=== PATIENT | female | born 1980 | race Two or more races ===

== ENCOUNTER 2017-02-19 09:20 | Emergency (ER) | payer MEDICAID, OTHER ==
[~2017-02-19] VITALS: Ht 152.4 cm; Wt 83.9 kg
[2017-02-19] MEDS ORDERED: METOPROLOL TARTRATE 50 MG TAB PO ONE (09:45)
[2017-02-19] MEDS ORDERED: ASPirin 81 mg TAB PO ONE (09:45)
[2017-02-19 11:56] LABS: Basophils # (auto) 0.1 uL; Basophils % (auto) 0.8 % (0.0-2.0); Eosinophils # (auto) 0.3 uL; Hematocrit 39.3 % (36.0-46.0); Hemoglobin 13.6 g/dL (12.2-16.2); Lymphocytes # (auto) 1.3 uL; Lymphocytes % (auto) 12.8 % (10.0-50.0); Mean Corpuscular Hemoglobin 27.1 pg (28.0-32.0); Mean Corpuscular Hgb Conc. 34.7 g/dL (32.0-36.0); Mean Corpuscular Volume 78.3 fL (80.0-100.0); Mean Platelet Volume 7.4 fL (6.9-10.8); Monocytes # (auto) 0.5 uL; Monocytes % (auto) 5.5 % (0.0-12.0); Neutrophils # (auto) 7.7 uL; Neutrophils % (auto) 77.9 % (37.0-80.0); Nucleated Red Blood Cells % 0.1 %; Platelet Count (auto) 290 10^3/uL (140-450); Red Cell Distribution Width 13.6 % (11.8-14.3); White Blood Cell 9.9 10^3/uL (4.4-10.8)
[2017-02-19 12:00] VITALS: BP 129/75
[2017-02-19 12:21] LABS: Alkaline Phosphatase 61 U/L (45-117); Anion Gap 10 (5-15); Aspartate Aminotransferase 23 U/L (15-37); BUN/Creatinine Ratio 15.4; Bilirubin, Total 0.4 mg/dL (0.2-1.0); Blood Urea Nitrogen 8 mg/dL (7-18); Calcium 8.6 mg/dL (8.5-10.1); Carbon Dioxide 24 mmol/L (21-32); Chloride 104 mmol/L (98-107); GFR African American 173 mL/min; GFR Non-African American 143 mL/min; Glucose 155 mg/dL (74-106); Sodium 138 mmol/L (136-145); Total Protein 8.2 g/dL (6.4-8.2)
== END 2017-02-19 13:17 | disposition home or self-care (01) ==
LOC: ER 09:20 → EDBD 09:20 → ER 13:17
DX: R00.2 Palpitations (principal); R07.89 Other chest pain; I10 Essential (primary) hypertension; R42 Dizziness and giddiness; Z96.89 Presence of other specified functional implants
CPT/HCPCS: 36415; 71010; 80053; 84443; 84484; 85025; 93005

== ENCOUNTER 2018-04-21 07:53 | Emergency (ER) | payer BC, MEDICAID ==
[~2018-04-21] VITALS: Ht 152.4 cm; Wt 84.4 kg
[~2018-04-21 07:53] MED LIST: ASPI325T4 PO; METO-5 PO
[2018-04-21 08:26] LABS: Eosinophils # (auto) 0.4 uL; Lymphocytes # (auto) 0.9 uL; Monocytes # (auto) 0.5 uL; Neutrophils # (auto) 4.8 uL; Red Cell Distribution Width 13.3 % (11.8-14.3)
[2018-04-21 08:29] LABS: Basophils # (auto) 0 uL; Basophils % (auto) 0.6 % (0.0-2.0); Eosinophils % (auto) 5.3 % (0.0-7.0); Hematocrit 38.2 % (36.0-46.0); Lymphocytes % (auto) 13.2 % (10.0-50.0); Mean Corpuscular Hemoglobin 26.5 pg (28.0-32.0); Monocytes % (auto) 7.7 % (0.0-12.0); Neutrophils % (auto) 73.2 % (37.0-80.0); Nucleated Red Blood Cells % 0.2 %; Platelet Count (auto) 210 10^3/uL (140-450); White Blood Cell 6.6 10^3/uL (4.4-10.8)
[2018-04-21 08:38] LABS: Alanine Aminotransferase 31 U/L (13-56); Albumin 3.6 g/dL (3.4-5.0); Anion Gap 5 (5-15); Aspartate Aminotransferase 30 U/L (15-37); Blood Urea Nitrogen 13 mg/dL (7-18); Carbon Dioxide 25 mmol/L (21-32); Chloride 108 mmol/L (98-107); Glucose 222 mg/dL (74-106); Magnesium 1.9 mg/dL (1.6-2.6); Potassium 3.5 mmol/L (3.5-5.1); Sodium 138 mmol/L (136-145)
[2018-04-21 08:39] LABS: INR 0.99 (0.9-1.15); Partial Thromboplastin Time 28.1 sec (23.78-33.04); Prothrombin Time 10.6 sec (9.27-12.13)
[2018-04-21 08:43] LABS: Alkaline Phosphatase 60 U/L (45-117); BUN/Creatinine Ratio 22.4; Bilirubin, Total 0.5 mg/dL (0.2-1.0); GFR African American > 60 mL/min; GFR Non-African American > 60 mL/min; Total Protein 7.2 g/dL (6.4-8.2)
[2018-04-21] MEDS ORDERED: LORazepam 0.5 MG TAB PO ONE (08:45)
[2018-04-21 09:04] LABS: Urine Bacteria NONE SEEN /hpf (None Seen); Urine Blood 3+ /uL (Negative); Urine Hyaline Cast FEW /lpf (0 - 2); Urine Specific Gravity 1.021 (1.001-1.035); Urine WBC 43 /hpf (0 - 5)
[2018-04-21 09:11] LABS: Alcohol, Urine < 3.0 mg/dL (0-5); Amphetamine Screen, Urine NEGATIVE (NEGATIVE); Barbiturate Scree,Urine NEGATIVE (NEGATIVE); Benzodiazephine Screen, Urine NEGATIVE (NEGATIVE); Cannabinoid Screen, Urine NEGATIVE (NEGATIVE); Cocaine Screen, Urine NEGATIVE (NEGATIVE); Opiate Scree,Urine NEGATIVE (NEGATIVE); Phencyclidine Screen, Urine NEGATIVE (NEGATIVE)
[2018-04-21] MEDS ORDERED: cefTRIAXone 1GM/50ML D5W 50 ML IV ONE (09:30)
[2018-04-21 10:31] VITALS: BP 132/83
== END 2018-04-21 12:01 | disposition home or self-care (01) ==
LOC: ER 07:53 → EDBD 07:53 → ER 11:58
DX: R00.2 Palpitations (principal); I10 Essential (primary) hypertension; Z95.0 Presence of cardiac pacemaker
CPT/HCPCS: 36415; 71045; 80053; 80307; 81001; 83735; 84484; 85025; 85610; 85730; 87040; 93005; 94761; 96365; 99284; J0696

== ENCOUNTER 2019-06-14 04:28 | Emergency (ER) | payer BC ==
[~2019-06-14] VITALS: Ht 152.4 cm; Wt 81.6 kg
[2019-06-14 05:45] LABS: Basophils # (auto) 0.1 10 ^3/uL (0-0.2); Basophils % (auto) 0.9 % (0.0-2.0); Eosinophils # (auto) 0.4 10 ^3/uL (0-0.8); Eosinophils % (auto) 3.7 % (0.0-7.0); Hematocrit 38.6 % (36.0-46.0); Hemoglobin 13.5 g/dL (12.2-16.2); Lymphocytes # (auto) 1.5 10 ^3/uL (0.4-5.4); Lymphocytes % (auto) 13.8 % (10.0-50.0); Monocytes # (auto) 0.6 10 ^3/uL (0-1.3); Monocytes % (auto) 6.1 % (0.0-12.0); Neutrophils % (auto) 75.5 % (37.0-80.0); Nucleated Red Blood Cells % 0.3 %; Platelet Count (auto) 293 10^3/uL (140-450); Red Blood Cells 5.02 10^6/uL (4.0-5.20); Red Cell Distribution Width 13.7 % (11.8-14.3); White Blood Cell 10.6 10^3/uL (4.4-10.8)
[2019-06-14 05:57] LABS: Chloride 105 mmol/L (98-107); Potassium 3.5 mmol/L (3.5-5.1); Sodium 137 mmol/L (136-145)
[2019-06-14 06:00] LABS: INR 1.02 (0.9-1.15); Partial Thromboplastin Time 29.3 sec (23.64-32.05)
[2019-06-14 06:12] LABS: Alanine Aminotransferase 26 U/L (13-56); Alkaline Phosphatase 57 U/L (45-117); Anion Gap 8 (5-15); Aspartate Aminotransferase 21 U/L (15-37); BUN/Creatinine Ratio 23.1; Bilirubin, Total 0.4 mg/dL (0.2-1.0); Blood Urea Nitrogen 18 mg/dL (7-18); Calcium 8.8 mg/dL (8.5-10.1); Carbon Dioxide 24 mmol/L (21-32); GFR African American 107 mL/min; GFR Non-African American 88 mL/min; Glucose 149 mg/dL (74-106); Total Protein 8.1 g/dL (6.4-8.2)
[2019-06-14 10:00] VITALS: BP 111/54
== END 2019-06-14 10:54 | disposition home or self-care (01) ==
LOC: ER 04:28
DX: R00.2 Palpitations (principal); F41.9 Anxiety disorder, unspecified; E11.65 Type 2 diabetes mellitus with hyperglycemia; I10 Essential (primary) hypertension; I25.2 Old myocardial infarction; Z95.0 Presence of cardiac pacemaker
CPT/HCPCS: 36415; 71045; 80053; 83735; 83880; 84443; 84484; 85025; 85610; 85730; 93005

== ENCOUNTER 2020-01-26 16:13 | Inpatient (IN) | payer BC ==
[~2020-01-26] VITALS: Ht 152.4 cm; Wt 72.0 kg
[2020-01-26] MEDS ORDERED: SODIUM CHLORIDE 0.9% 1,000 ML IV ONE (16:30)
[2020-01-26 18:28] LABS: Basophils # (auto) 0.1 10 ^3/uL (0-0.2); Eosinophils # (auto) 0.4 10 ^3/uL (0-0.8); Hemoglobin 12.5 g/dL (12.2-16.2); Lymphocytes # (auto) 1.8 10 ^3/uL (0.4-5.4)
[2020-01-26 18:32] LABS: Eosinophils % (auto) 3.8 % (0.0-7.0); Hematocrit 36.9 % (36.0-46.0); Lymphocytes % (auto) 17.5 % (10.0-50.0); Mean Corpuscular Hemoglobin 24.3 pg (28.0-32.0); Mean Corpuscular Hgb Conc. 33.9 g/dL (32.0-36.0); Mean Corpuscular Volume 71.5 fL (80.0-100.0); Monocytes # (auto) 0.6 10 ^3/uL (0-1.3); Monocytes % (auto) 5.7 % (0.0-12.0); Neutrophils # (auto) 7.5 10 ^3/uL (1.6-8.6); Nucleated Red Blood Cells % 0.2 %; Platelet Count (auto) 282 10^3/uL (140-450); Red Blood Cells 5.16 10^6/uL (4.0-5.20); White Blood Cell 10.5 10^3/uL (4.4-10.8)
[2020-01-26 18:42] LABS: INR 0.99 (0.9-1.15); Partial Thromboplastin Time 26.9 sec (23.0-31.2)
[2020-01-26 18:44] LABS: Albumin 4.3 g/dL (3.4-5.0); Anion Gap 8 (5-15); Blood Urea Nitrogen 20 mg/dL (7-18); Calcium 9.3 mg/dL (8.5-10.1); Carbon Dioxide 27 mmol/L (21-32); Chloride 101 mmol/L (98-107); Glucose 204 mg/dL (74-106); Sodium 136 mmol/L (136-145)
[2020-01-26 18:48] LABS: Alanine Aminotransferase 17 U/L (13-56); Alkaline Phosphatase 59 U/L (45-117); Aspartate Aminotransferase 13 U/L (15-37); BUN/Creatinine Ratio 26.7; Bilirubin, Total 0.4 mg/dL (0.2-1.0); GFR African American 111 mL/min; GFR Non-African American 92 mL/min; Total Protein 8.2 g/dL (6.4-8.2)
[2020-01-26 18:59] LABS: Potassium 2.9 mmol/L (3.5-5.1)
[2020-01-26] MEDS ORDERED: POTASSIUM EFFERVESENT TAB 25 MEQ PO ONE (19:45)
[2020-01-26] MEDS ORDERED: MORPHINE SULF INJ 2 MG/ML SYRINGE 1ML IV PRN (20:15)
[2020-01-26] MEDS ORDERED: NITROGLYCERIN 0.4 MG SL TAB SL PRN (20:15)
[2020-01-26] MEDS ORDERED: HYDROcodone-ACET 5/325MG TAB PO PRN (20:30)
[2020-01-26] MEDS ORDERED: ONDANSETRON HCL 4 MG/2 ML VIAL IV PRN (20:30)
[2020-01-26] MEDS ORDERED: TEMAZEPAM 15 MG CAP PO PRN (20:30)
[2020-01-26] MEDS ORDERED: ACETAMINOPHEN 325 MG TAB PO PRN (20:30)
[2020-01-26] MEDS ORDERED: MORPHINE SULFATE 4 MG/ML SYR/VIAL IV PRN (20:30)
[2020-01-26] MEDS ORDERED: DOCUSATE SOD 100 MG CAP PO PRN (20:30)
[2020-01-26] MEDS: POTASSIUM CHL 20MEQ/100ML 100 ML IV SCH ×2 (21:06→23:20)
[2020-01-26 22:00] VITALS: BP_SYST 110; BP_SYST 112; BP_SYST 132; BP_DIAS 73; BP_DIAS 78; BP_DIAS 81
--- NOTE | 2020-01-26 22:35 | NUR ---
Telemetry admit from [facility]ONS[facility] MANSFIELDMANJINDER admitted to Telemetry unit, SBAR not received. Patient oriented to Candy neil RN, unit, room, bed, and unit policies regarding patient care and visiting hours. Patient now on continuous telemetry monitoring, tele box #66 and telemetry reading on arrival to unit is SR in the 70S, paced. Patient weighed by bedscale and encouraged to call if they need something. All questions and concerns addressed, patient verbalized understanding. Patient in the lowest possible position, no pain noted at this time.
[2020-01-26] MEDS: FAMOTIDINE 20 MG TAB PO SCH (23:20)
[2020-01-26] MEDS ORDERED: METF-370 PO (23:38)
[2020-01-26] MEDS ORDERED: BENA10TA9 PO (23:38)
[2020-01-26] MEDS ORDERED: ATO40T PO (23:38)
[2020-01-26] MEDS ORDERED: GLYB5TAB8 PO (23:38)
[2020-01-26] MEDS ORDERED: ASPI-378 PO (23:38)
[2020-01-27] VITALS: BP 132/81
[2020-01-27 05:44] VITALS: BP 106/75
[2020-01-27 05:59] LABS: Basophils # (auto) 0 10 ^3/uL (0-0.2); Basophils % (auto) 0.3 % (0.0-2.0); Eosinophils # (auto) 0.3 10 ^3/uL (0-0.8); Eosinophils % (auto) 3.7 % (0.0-7.0); Hematocrit 35.6 % (36.0-46.0); Hemoglobin 11.5 g/dL (12.2-16.2); Lymphocytes # (auto) 1.4 10 ^3/uL (0.4-5.4); Lymphocytes % (auto) 16.3 % (10.0-50.0); Mean Corpuscular Hemoglobin 23.4 pg (28.0-32.0); Mean Corpuscular Hgb Conc. 32.4 g/dL (32.0-36.0); Mean Corpuscular Volume 72.1 fL (80.0-100.0); Monocytes # (auto) 0.6 10 ^3/uL (0-1.3); Monocytes % (auto) 6.7 % (0.0-12.0); Neutrophils # (auto) 6.1 10 ^3/uL (1.6-8.6); Platelet Count (auto) 237 10^3/uL (140-450); Red Blood Cells 4.94 10^6/uL (4.0-5.20); Red Cell Distribution Width 14.9 % (11.8-14.3); White Blood Cell 8.4 10^3/uL (4.4-10.8)
[2020-01-27 06:22] LABS: Calcium 8.2 mg/dL (8.5-10.1); Chloride 108 mmol/L (98-107); Potassium 3.4 mmol/L (3.5-5.1); Sodium 138 mmol/L (136-145)
[2020-01-27 06:29] LABS: Alanine Aminotransferase 14 U/L (13-56); Albumin 3.6 g/dL (3.4-5.0); Alkaline Phosphatase 42 U/L (45-117); Anion Gap 8 (5-15); Aspartate Aminotransferase 13 U/L (15-37); BUN/Creatinine Ratio 33.3; Bilirubin, Total 0.5 mg/dL (0.2-1.0); Blood Urea Nitrogen 13 mg/dL (7-18); Carbon Dioxide 22 mmol/L (21-32); Cholesterol 90 mg/dL (< 200); GFR African American 237 mL/min; GFR Non-African American 195 mL/min; Glucose 77 mg/dL (74-106); HDL Cholesterol 41 mg/dL (40-59); LDL Cholesterol 46 mg/dL (< 100); Total Protein 6.8 g/dL (6.4-8.2); Triglycerides 82 mg/dL (< 150)
[2020-01-27 08:00] VITALS: BP 118/74
--- NOTE | 2020-01-27 08:00 | NUR ---
Patient resting quietly in bed with no distress noted. Patient stable.
[2020-01-27 09:00] VITALS: BP 130/48
[2020-01-27] MEDS: FAMOTIDINE 20 MG TAB PO SCH ×2 (09:38→22:52)
[2020-01-27] MEDS: ENOXAPARIN SOD 40 MG/0.4 ML SYRINGE SC SCH (09:38)
--- NOTE | 2020-01-27 09:39 | NUR ---
Scheduled medications given per order. Patient resting comfortably in bed with no complaint of any pain at this time. Patient stable.
--- NOTE | 2020-01-27 10:45 | NUR ---
Patient resting comfortably in bed with no distress noted. Patient stable at this time.
[2020-01-27] MEDS ORDERED: POTASSIUM CHL 20 Meq TABLET PO ONE (12:00)
--- NOTE | 2020-01-27 12:02 | NUR ---
Ordered medication (potassium; 3.4) given. Patient resting comfortably in bed. Patient stable.
--- NOTE | 2020-01-27 12:10 | NUR ---
Called [facility] at [phone]; spoke to Tomy regarding entry level account representative to come to hospital to activate pacemaker/AICD for MRI. Per Tomy, will have local Nasreen rocha call me regarding activation. Addendum: 01/27/20 at 1227 by MARV TREJO RN RN [id number]: Also called Sydney rocha) regarding activation. Per León Grimes will complete all paperwork before she can be dispatched to hospital. Addendum: 01/27/20 at 1228 by MARV TREJO RN RN Phone # for Sydney: [phone]
[2020-01-27 13:00] VITALS: BP 109/61
--- NOTE | 2020-01-27 14:00 | NUR ---
Received call from Nasreen at [facility] . Caller stated that patient's pacemaker is not from [facility]. Will call and advise Dr. Richardson.
--- NOTE | 2020-01-27 14:15 | NUR ---
Paged Dr. Richardson to relay information received from Nasreen/[facility]. Left message.
--- NOTE | 2020-01-27 16:10 | NUR ---
Patient resting comfortably in bed with eyes closed. Patient stable.
[2020-01-27 17:00] VITALS: BP 113/69
--- NOTE | 2020-01-27 17:00 | NUR ---
Paged Dr. Richardson regarding activation of pacemaker for MRI.
--- NOTE | 2020-01-27 17:30 | NUR ---
Patient stable with Dr. Ellington at bedside. Patient states pacemaker is from [facility]. Called [facility] again [phone] and spoke to Conor. Per Conor, he will contact the local rep, Nasreen and have her call me. Pacemaker needs to be interrogated and we need to know if it is compatible for MRI. Awaiting call back from Nasreen
[2020-01-27] MEDS ORDERED: MAGNESIUM SULFATE 1GM/100ML 100 ML IV SCH (18:00)
[2020-01-27 18:58] LABS: Albumin 3.5 g/dL (3.4-5.0); Calcium 8.3 mg/dL (8.5-10.1); Potassium 4.1 mmol/L (3.5-5.1)
[2020-01-27 19:01] LABS: BUN/Creatinine Ratio 22.4; Magnesium 1.6 mg/dL (1.6-2.6)
[2020-01-27 19:04] LABS: Bilirubin, Total 0.3 mg/dL (0.2-1.0); Total Protein 7.1 g/dL (6.4-8.2)
--- NOTE | 2020-01-27 19:05 | NUR ---
Dr. Marin and I spoke to Nasreen from [facility]. Patient was found in database using maiden name, Nestor and . Nasreen will contact local rep to come to hospital and interrogate pacemaker. Per Nasreen, db is not MRI compatible.
[2020-01-27] MEDS ORDERED: METOPROLOL TARTRATE 50 MG TAB PO SCH (22:00)
[2020-01-27] MEDS: MAGNESIUM SULFATE 1GM/100ML 100 ML IV SCH (22:51)
[2020-01-27] MEDS: METOPROLOL TARTRATE 50 MG TAB PO SCH (22:53)
[2020-01-28] MEDS: MAGNESIUM SULFATE 1GM/100ML 100 ML IV SCH ×2 (00:59→02:32)
[2020-01-28 05:00] VITALS: BP 119/78
[2020-01-28 06:57] LABS: Basophils # (auto) 0.1 10 ^3/uL (0-0.2); Nucleated Red Blood Cells % 0.1 %
[2020-01-28 07:00] LABS: Basophils % (auto) 1.1 % (0.0-2.0); Eosinophils # (auto) 0.3 10 ^3/uL (0-0.8); Eosinophils % (auto) 4.4 % (0.0-7.0); Hematocrit 35.2 % (36.0-46.0); Hemoglobin 11.7 g/dL (12.2-16.2); Lymphocytes # (auto) 1.2 10 ^3/uL (0.4-5.4); Lymphocytes % (auto) 15.7 % (10.0-50.0); Mean Corpuscular Hemoglobin 23.8 pg (28.0-32.0); Mean Corpuscular Hgb Conc. 33.1 g/dL (32.0-36.0); Monocytes # (auto) 0.5 10 ^3/uL (0-1.3); Monocytes % (auto) 7.2 % (0.0-12.0); Neutrophils # (auto) 5.4 10 ^3/uL (1.6-8.6); Neutrophils % (auto) 71.6 % (37.0-80.0); Platelet Count (auto) 253 10^3/uL (140-450); Red Blood Cells 4.89 10^6/uL (4.0-5.20); Red Cell Distribution Width 15.3 % (11.8-14.3); White Blood Cell 7.5 10^3/uL (4.4-10.8)
[2020-01-28 07:17] LABS: Albumin 3.6 g/dL (3.4-5.0); Calcium 8.4 mg/dL (8.5-10.1); Magnesium 2.7 mg/dL (1.6-2.6)
[2020-01-28 07:21] LABS: Bilirubin, Total 0.3 mg/dL (0.2-1.0); Total Protein 7.2 g/dL (6.4-8.2)
--- NOTE | 2020-01-28 08:31 | NUR ---
OPENING SHIFT NOTE: PATIENT RESTING IN BED, AWAKE EATING BREAKFAST A/OX4. RESPIRATIONS EVEN AND UNLABORED. PATIENT CONCERNS ADDRESSED AND UPDATED ON PLAN OF CARE. CALL LIGHT WITHIN REACH WILL CONTINUE TO MONITOR.
[2020-01-28 08:52] VITALS: BP 128/77
[2020-01-28] MEDS ORDERED: ATORVASTATIN 20 MG TAB PO SCH (10:00)
[2020-01-28] MEDS ORDERED: ASPirin-EC 81 mg tab PO SCH (10:00)
[2020-01-28] MEDS ORDERED: BENAZEPRIL HCL 10 MG TAB PO SCH (10:00)
[2020-01-28] MEDS: FAMOTIDINE 20 MG TAB PO SCH (10:04)
[2020-01-28] MEDS: METOPROLOL TARTRATE 50 MG TAB PO SCH (10:04)
[2020-01-28] MEDS: ENOXAPARIN SOD 40 MG/0.4 ML SYRINGE SC SCH (10:04)
[2020-01-28 13:00] VITALS: BP 105/67
[2020-01-28 14:12] VITALS: BP 117/73
--- NOTE | 2020-01-28 16:16 | NUR ---
DISCHARGE: PATIENT GIVEN ALL EDUCATION MATERIALS. VERBALIZED UNDERSTANDING. PATIENT HAS APPOINTMENT WITH ROAD DESIGN ENGINEER TOMORROW. IV REMOVED, MANUAL PRESSURE APPLIED. TELE RETURNED TO CARDIO UNIT. PATIENT TAKEN TO PRIVATE AUTO WITH ALL BELONGINGS VIA WHEELCHAIR BY THIS RN.
== END 2020-01-28 16:22 | disposition home or self-care (01) | DRG 310 ==
LOC: ER 16:13 → EDBD 16:13 → TELE 16:14 → TELE-WESTW 22:20
PROVIDERS: ADMIT Nurse Practitioner; ATTEND Internal Medicine
PROC: 4B02XTZ Measurement of Cardiac Defibrillator, External Approach (ICD-10-PCS; principal; 2020-01-27)
DX: I47.1 Supraventricular tachycardia (principal); E66.9 Obesity, unspecified; Z68.31 Body mass index [BMI] 31.0-31.9, adult; E78.00 Pure hypercholesterolemia, unspecified; E87.6 Hypokalemia; I10 Essential (primary) hypertension; I45.10 Unspecified right bundle-branch block; E11.40 Type 2 diabetes mellitus with diabetic neuropathy, unspecified; I25.10 Atherosclerotic heart disease of native coronary artery without angina pectoris; I25.2 Old myocardial infarction; Z79.82 Long term (current) use of aspirin; Z79.899 Other long term (current) drug therapy; Z82.49 Family history of ischemic heart disease and other diseases of the circulatory system; Z95.2 Presence of prosthetic heart valve; Z95.810 Presence of automatic (implantable) cardiac defibrillator; Z95.5 Presence of coronary angioplasty implant and graft; Z79.84 Long term (current) use of oral hypoglycemic drugs
CPT/HCPCS: 36415; 70450; 71045; 80053; 80061; 83036; 83735; 83880; 84484; 85025; 85610; 85730; 93005; 93306; G0378; J3480

== ENCOUNTER 2020-06-01 13:58 | Emergency (ER) | payer BC ==
[~2020-06-01] VITALS: Ht 154.9 cm; Wt 73.5 kg
[~2020-06-01 13:58] MED LIST changes: +ASPI-378 PO; -ASPI325T4 PO; +ATO40T PO; +BENA10TA9 PO; -METO-5 PO
[2020-06-01 14:43] LABS: Basophils # (auto) 0.1 10 ^3/uL (0-0.2); Hemoglobin 11.7 g/dL (12.2-16.2); Lymphocytes # (auto) 1.7 10 ^3/uL (0.4-5.4); Neutrophils # (auto) 5.7 10 ^3/uL (1.6-8.6); Nucleated Red Blood Cells % 0.2 %; Red Cell Distribution Width 16.6 % (11.8-14.3)
[2020-06-01 14:44] LABS: Basophils % (auto) 0.9 % (0.0-2.0); Eosinophils # (auto) 0.5 10 ^3/uL (0-0.8); Eosinophils % (auto) 5.4 % (0.0-7.0); Hematocrit 34.6 % (36.0-46.0); Lymphocytes % (auto) 19.8 % (10.0-50.0); Mean Corpuscular Hemoglobin 24.3 pg (28.0-32.0); Mean Corpuscular Hgb Conc. 33.9 g/dL (32.0-36.0); Mean Corpuscular Volume 71.6 fL (80.0-100.0); Monocytes # (auto) 0.7 10 ^3/uL (0-1.3); Monocytes % (auto) 7.6 % (0.0-12.0); Neutrophils % (auto) 66.3 % (37.0-80.0); Platelet Count (auto) 311 10^3/uL (140-450); Red Blood Cells 4.84 10^6/uL (4.0-5.20); White Blood Cell 8.6 10^3/uL (4.4-10.8)
[2020-06-01] MEDS ORDERED: ASPirin 81 mg TAB PO ONE (14:45)
[2020-06-01 15:16] LABS: Albumin 3.6 g/dL (3.4-5.0); Anion Gap 5 (5-15); Blood Urea Nitrogen 13 mg/dL (7-18); Calcium 8.5 mg/dL (8.5-10.1); Carbon Dioxide 27 mmol/L (21-32); Chloride 106 mmol/L (98-107); Glucose 161 mg/dL (74-106); Magnesium 2.2 mg/dL (1.6-2.6); Potassium 3.9 mmol/L (3.5-5.1); Sodium 138 mmol/L (136-145)
[2020-06-01 15:18] LABS: INR 0.96 (0.9-1.15); Partial Thromboplastin Time 26.8 sec (23.0-31.2)
[2020-06-01 15:22] LABS: Alanine Aminotransferase 18 U/L (13-56); Alkaline Phosphatase 48 U/L (45-117); Aspartate Aminotransferase 17 U/L (15-37); BUN/Creatinine Ratio 21.7; Bilirubin, Total 0.3 mg/dL (0.2-1.0); GFR African American 144 mL/min; GFR Non-African American 119 mL/min; Total Protein 7.8 g/dL (6.4-8.2)
[2020-06-01 15:34] LABS: Urine Amorphous Crystal FEW /hpf (None Seen); Urine Bacteria NONE SEEN /hpf (None Seen); Urine Blood 3+ /uL (Negative); Urine Budding Yeast OCCASIONAL /hpf (None Seen); Urine Mucus FEW (None Seen); Urine Specific Gravity 1.024 (1.001-1.035); Urine WBC 39 /hpf (0 - 5)
[2020-06-01] MEDS ORDERED: METOPROLOL TARTRATE 50 MG TAB PO ONE (15:45)
[2020-06-01] MEDS ORDERED: IOPAMIDOL 76 % (ISOVUE-370) 100ML BTL IV ONE (17:20)
[2020-06-01 19:30] VITALS: BP 152/83
== END 2020-06-01 20:11 | disposition home or self-care (01) ==
LOC: EDBD 13:58 → ER 13:58
DX: R00.2 Palpitations (principal); R07.89 Other chest pain; N39.0 Urinary tract infection, site not specified; E11.9 Type 2 diabetes mellitus without complications; I10 Essential (primary) hypertension; Z79.899 Other long term (current) drug therapy
CPT/HCPCS: 36415; 71045; 71275; 80053; 81001; 83735; 84443; 84484; 84702; 85025; 85379; 85610; 85730; 93005; 99285; Q9967

== ENCOUNTER 2020-12-09 10:12 | Emergency (ER) | payer BC ==
[~2020-12-09] VITALS: Ht 154.9 cm; Wt 72.6 kg
[2020-12-09 12:00] VITALS: BP 126/78
[2020-12-09] MEDS ORDERED: cloNIDine HCL 0.1 MG TAB PO ONE (12:45)
== END 2020-12-09 13:10 | disposition home or self-care (01) ==
LOC: ER 10:12
DX: G45.9 Transient cerebral ischemic attack, unspecified (principal); R07.89 Other chest pain; I10 Essential (primary) hypertension; E11.9 Type 2 diabetes mellitus without complications; Z95.0 Presence of cardiac pacemaker; Z98.890 Other specified postprocedural states
CPT/HCPCS: 70450; 70480; 93005

== ENCOUNTER 2021-08-25 23:04 | Inpatient (IN) | payer BC ==
[~2021-08-25] VITALS: Ht 152.4 cm; Wt 76.0 kg
[~2021-08-25 23:04] MED LIST changes: +BENA10TA15 PO; -BENA10TA9 PO
[2021-08-26] VITALS (11 sets, daily range): BP systolic 110–140; BP diastolic 37–78
[2021-08-26 00:24] LABS: Basophils # (auto) 0.1 10 ^3/uL (0-0.2); Eosinophils # (auto) 0.2 10 ^3/uL (0-0.8); Monocytes # (auto) 0.8 10 ^3/uL (0-1.3); Neutrophils # (auto) 9.3 10 ^3/uL (1.6-8.6); Nucleated Red Blood Cells % 0.1 %
[2021-08-26 00:25] LABS: Basophils % (auto) 0.5 % (0.0-2.0); Eosinophils % (auto) 1.8 % (0.0-7.0); Hematocrit 21.8 % (36.0-46.0); Lymphocytes # (auto) 0.8 10 ^3/uL (0.4-5.4); Lymphocytes % (auto) 6.8 % (10.0-50.0); Mean Corpuscular Hemoglobin 15.2 pg (28.0-32.0); Mean Corpuscular Hgb Conc. 28.9 g/dL (32.0-36.0); Mean Corpuscular Volume 52.6 fL (80.0-100.0); Monocytes % (auto) 7.4 % (0.0-12.0); Neutrophils % (auto) 83.5 % (37.0-80.0); Red Blood Cells 4.15 10^6/uL (4.0-5.20); White Blood Cell 11.1 10^3/uL (4.4-10.8)
[2021-08-26 00:31] LABS: Hemoglobin 6.3 g/dL (12.2-16.2); Red Cell Distribution Width 21.3 % (11.8-14.3)
[2021-08-26 00:44] LABS: Albumin 3.3 g/dL (3.4-5.0); Calcium 8.3 mg/dL (8.5-10.1); Potassium 3.5 mmol/L (3.5-5.1)
[2021-08-26 00:46] LABS: Bilirubin, Total 0.7 mg/dL (0.2-1.0); Total Protein 7.3 g/dL (6.4-8.2)
[2021-08-26] MEDS ORDERED: ACETAMINOPHEN 325 MG TAB PO PRN (02:00)
[2021-08-26] MEDS ORDERED: DOCUSATE SOD 100 MG CAP PO PRN (02:00)
[2021-08-26] MEDS ORDERED: SODIUM CHLORIDE 0.9% 1,000 ML IV SCH (02:00)
[2021-08-26] MEDS ORDERED: ONDANSETRON HCL 4 MG/2 ML VIAL IV PRN (02:00)
[2021-08-26] MEDS ORDERED: HYDROcodone-ACET 5/325MG TAB PO PRN (02:00)
[2021-08-26] MEDS ORDERED: DEXTROSE (50%) 50ML SYRG IV PRN (02:00)
[2021-08-26] MEDS ORDERED: hydrALAZINE HCL 20 MG/ML VL IV PRN (02:15)
[2021-08-26 04:53] LABS: Urine Bacteria MANY /hpf (None Seen); Urine Blood 3+ /uL (Negative); Urine Hyaline Cast FEW /lpf (0 - 2); Urine Mucus FEW (None Seen); Urine Specific Gravity 1.024 (1.001-1.035); Urine WBC 38 /hpf (0 - 5)
[2021-08-26] MEDS ORDERED: MORPHINE SULFATE INJ 2 MG/ml SYRG IV PRN (05:45)
[2021-08-26] MEDS ORDERED: NITROGLYCERIN 0.4 MG SL TAB SL PRN (05:45)
[2021-08-26] MEDS: ACCU-CHEK COMFORT CURVE STRIP VI SCH ×4 (07:05→22:57)
[2021-08-26] MEDS: InsuLIN REG 1unit/0.01ml Soln (100units/ml) SC SCH ×4 (07:07→23:04)
[2021-08-26 08:14] LABS: BUN/Creatinine Ratio 26.7; Calcium 8.1 mg/dL (8.5-10.1); Potassium 3.4 mmol/L (3.5-5.1)
[2021-08-26 08:17] LABS: Bilirubin, Total 0.6 mg/dL (0.2-1.0); Total Protein 7.1 g/dL (6.4-8.2)
[2021-08-26] MEDS: ASPirin 81 mg TAB PO SCH (09:58)
[2021-08-26] MEDS: BENAZEPRIL HCL 10 MG TAB PO SCH ×2 (10:00→22:48)
[2021-08-26] MEDS: HEPARIN SODIUM (PORCINE) 5000 UNITS/ML 1ML VIAL SC SCH ×2 (10:01→22:57)
[2021-08-26] MEDS ORDERED: cefTRIAXone 1GM/50ML D5W 50 ML IV ONE (13:15)
[2021-08-26 17:16] LABS: Eosinophils # (auto) 0.2 10 ^3/uL (0-0.8); Mean Corpuscular Hgb Conc. 31.9 g/dL (32.0-36.0)
[2021-08-26 17:18] LABS: Basophils # (auto) 0 10 ^3/uL (0-0.2); Basophils % (auto) 0.3 % (0.0-2.0); Eosinophils % (auto) 2.7 % (0.0-7.0); Hematocrit 28.6 % (36.0-46.0); Hemoglobin 9.1 g/dL (12.2-16.2); Lymphocytes # (auto) 1.5 10 ^3/uL (0.4-5.4); Lymphocytes % (auto) 17.2 % (10.0-50.0); Mean Corpuscular Volume 59.6 fL (80.0-100.0); Monocytes # (auto) 1.1 10 ^3/uL (0-1.3); Monocytes % (auto) 12.9 % (0.0-12.0); Neutrophils # (auto) 5.6 10 ^3/uL (1.6-8.6); Neutrophils % (auto) 66.9 % (37.0-80.0); Nucleated Red Blood Cells % 0.2 %; White Blood Cell 8.4 10^3/uL (4.4-10.8)
[2021-08-26 17:33] LABS: Red Cell Distribution Width 30.4 % (11.8-14.3)
[2021-08-26] MEDS: ATORVASTATIN 20 MG TAB PO SCH (22:46)
[2021-08-26] MEDS: METOPROLOL TARTRATE 50 MG TAB PO SCH (22:47)
[2021-08-26 22:57] LABS: % Iron Saturation 7.4 % (15-50)
[2021-08-27] MEDS ORDERED: GLYB5TAB8 PO (02:18)
[2021-08-27] MEDS ORDERED: METF-370 PO (02:18)
[2021-08-27 05:40] VITALS: BP 112/59
[2021-08-27] MEDS: InsuLIN REG 1unit/0.01ml Soln (100units/ml) SC SCH ×4 (06:22→21:56)
[2021-08-27] MEDS: ACCU-CHEK COMFORT CURVE STRIP VI SCH ×4 (06:22→21:56)
[2021-08-27 06:25] LABS: Basophils # (auto) 0.1 10 ^3/uL (0-0.2); Eosinophils # (auto) 0.3 10 ^3/uL (0-0.8); Lymphocytes # (auto) 1.3 10 ^3/uL (0.4-5.4); Nucleated Red Blood Cells % 0.2 %; White Blood Cell 8.7 10^3/uL (4.4-10.8)
[2021-08-27 06:30] LABS: Basophils % (auto) 1.6 % (0.0-2.0); Eosinophils % (auto) 3.1 % (0.0-7.0); Hematocrit 28.4 % (36.0-46.0); Lymphocytes % (auto) 14.7 % (10.0-50.0); Mean Corpuscular Hemoglobin 19.2 pg (28.0-32.0); Mean Corpuscular Hgb Conc. 31.8 g/dL (32.0-36.0); Mean Corpuscular Volume 60.3 fL (80.0-100.0); Monocytes % (auto) 11.7 % (0.0-12.0); Neutrophils % (auto) 68.9 % (37.0-80.0); Red Blood Cells 4.71 10^6/uL (4.0-5.20); Red Cell Distribution Width 29.8 % (11.8-14.3)
[2021-08-27 06:48] LABS: Albumin 2.9 g/dL (3.4-5.0); Calcium 8.2 mg/dL (8.5-10.1); Potassium 3.8 mmol/L (3.5-5.1)
[2021-08-27 06:54] LABS: Bilirubin, Total 0.9 mg/dL (0.2-1.0); Total Protein 7.2 g/dL (6.4-8.2)
[2021-08-27 08:00] VITALS: BP 112/59
[2021-08-27 09:00] VITALS: BP 107/48
[2021-08-27] MEDS: cefTRIAXone 1GM/50ML D5W 50 ML IV SCH (09:32)
[2021-08-27] MEDS: METOPROLOL TARTRATE 50 MG TAB PO SCH ×2 (09:33→22:10)
[2021-08-27] MEDS: ASPirin 81 mg TAB PO SCH (09:33)
[2021-08-27] MEDS: BENAZEPRIL HCL 10 MG TAB PO SCH ×2 (09:34→22:10)
[2021-08-27] MEDS: HEPARIN SODIUM (PORCINE) 5000 UNITS/ML 1ML VIAL SC SCH ×2 (09:36→21:55)
[2021-08-27 13:00] VITALS: BP 117/54
[2021-08-27] MEDS: SODIUM FERR GLUC 62.5MG/5ML 125 MG in SODIUM CHL 0.9% 100 ML IV SCH (13:15)
[2021-08-27 17:00] VITALS: BP 125/63
[2021-08-27] MEDS: ATORVASTATIN 20 MG TAB PO SCH (22:09)
[2021-08-27 23:57] VITALS: BP 115/76
[2021-08-28 05:17] VITALS: BP 91/48
[2021-08-28] MEDS: ACCU-CHEK COMFORT CURVE STRIP VI SCH ×4 (06:05→21:19)
[2021-08-28] MEDS: InsuLIN REG 1unit/0.01ml Soln (100units/ml) SC SCH ×4 (06:05→21:18)
[2021-08-28 07:03] LABS: Eosinophils # (auto) 0.3 10 ^3/uL (0-0.8); Lymphocytes # (auto) 1.5 10 ^3/uL (0.4-5.4); Nucleated Red Blood Cells % 0.2 %
[2021-08-28 07:05] LABS: Basophils # (auto) 0.4 10 ^3/uL (0-0.2); Eosinophils % (auto) 3.6 % (0.0-7.0); Hemoglobin 9.1 g/dL (12.2-16.2); Lymphocytes % (auto) 21.3 % (10.0-50.0); Mean Corpuscular Hgb Conc. 31.4 g/dL (32.0-36.0); Mean Corpuscular Volume 60.4 fL (80.0-100.0); Monocytes # (auto) 0.8 10 ^3/uL (0-1.3); Monocytes % (auto) 11.1 % (0.0-12.0); Neutrophils # (auto) 4.3 10 ^3/uL (1.6-8.6); White Blood Cell 7.3 10^3/uL (4.4-10.8)
[2021-08-28 07:07] LABS: Red Cell Distribution Width 30.7 % (11.8-14.3)
[2021-08-28 08:20] VITALS: BP 112/59
[2021-08-28 09:00] VITALS: BP 114/57
[2021-08-28] MEDS: cefTRIAXone 1GM/50ML D5W 50 ML IV SCH (10:23)
[2021-08-28] MEDS: ASPirin 81 mg TAB PO SCH (10:23)
[2021-08-28] MEDS: METOPROLOL TARTRATE 50 MG TAB PO SCH ×2 (10:25→22:02)
[2021-08-28] MEDS: HEPARIN SODIUM (PORCINE) 5000 UNITS/ML 1ML VIAL SC SCH ×2 (10:27→21:17)
[2021-08-28] MEDS: SODIUM FERR GLUC 62.5MG/5ML 125 MG in SODIUM CHL 0.9% 100 ML IV SCH ×2 (12:00→17:19)
[2021-08-28 13:00] VITALS: BP 123/53
[2021-08-28] MEDS: BENAZEPRIL HCL 10 MG TAB PO SCH ×2 (14:13→22:02)
[2021-08-28 16:53] VITALS: BP 121/61
[2021-08-28] MEDS: metFORMIN HYDROCHLORIDE 500 MG TAB PO SCH (17:32)
[2021-08-28 22:00] VITALS: BP 145/78
[2021-08-28] MEDS: ATORVASTATIN 20 MG TAB PO SCH (22:01)
[2021-08-29 05:11] VITALS: BP 120/58
[2021-08-29] MEDS: InsuLIN REG 1unit/0.01ml Soln (100units/ml) SC SCH ×2 (06:09→11:30)
[2021-08-29] MEDS: ACCU-CHEK COMFORT CURVE STRIP VI SCH ×2 (06:09→11:34)
[2021-08-29 07:17] LABS: Basophils # (auto) 0.1 10 ^3/uL (0-0.2); Hematocrit 28.9 % (36.0-46.0); Hemoglobin 8.9 g/dL (12.2-16.2); Mean Corpuscular Hgb Conc. 30.9 g/dL (32.0-36.0); Neutrophils # (auto) 4.8 10 ^3/uL (1.6-8.6); Neutrophils % (auto) 66.3 % (37.0-80.0); White Blood Cell 7.2 10^3/uL (4.4-10.8)
[2021-08-29 07:19] LABS: Basophils % (auto) 1.4 % (0.0-2.0); Eosinophils # (auto) 0.2 10 ^3/uL (0-0.8); Eosinophils % (auto) 3.2 % (0.0-7.0); Lymphocytes # (auto) 1.3 10 ^3/uL (0.4-5.4); Lymphocytes % (auto) 17.5 % (10.0-50.0); Mean Corpuscular Hemoglobin 18.7 pg (28.0-32.0); Mean Corpuscular Volume 60.6 fL (80.0-100.0); Monocytes # (auto) 0.8 10 ^3/uL (0-1.3); Monocytes % (auto) 11.6 % (0.0-12.0); Nucleated Red Blood Cells % 0.2 %; Red Blood Cells 4.78 10^6/uL (4.0-5.20)
[2021-08-29 07:33] LABS: Red Cell Distribution Width 30.8 % (11.8-14.3)
[2021-08-29] MEDS: metFORMIN HYDROCHLORIDE 500 MG TAB PO SCH (07:41)
[2021-08-29 08:00] VITALS: BP 128/77
[2021-08-29 09:05] VITALS: BP 128/77
[2021-08-29] MEDS: cefTRIAXone 1GM/50ML D5W 50 ML IV SCH (09:28)
[2021-08-29] MEDS: ASPirin 81 mg TAB PO SCH (09:49)
[2021-08-29] MEDS: BENAZEPRIL HCL 10 MG TAB PO SCH (09:51)
[2021-08-29] MEDS: METOPROLOL TARTRATE 50 MG TAB PO SCH (09:51)
[2021-08-29] MEDS: HEPARIN SODIUM (PORCINE) 5000 UNITS/ML 1ML VIAL SC SCH (09:52)
[2021-08-29] MEDS ORDERED: MET50T PO (10:49)
[2021-08-29 12:41] VITALS: BP 123/72
[2021-08-29] MEDS: SODIUM FERR GLUC 62.5MG/5ML 125 MG in SODIUM CHL 0.9% 100 ML IV SCH (12:49)
[2021-08-29 13:38] VITALS: BP 123/72
[2021-08-29 13:46] VITALS: BP 123/72
== END 2021-08-29 15:30 | disposition home or self-care (01) | DRG 309 ==
LOC: ER 23:04 → EDBD 23:04 → TELE 08-26 05:40 → TELE-WESTW 08-26 20:22
PROVIDERS: ADMIT Nurse Practitioner Family; ATTEND Internal Medicine Pulmonary Disease
PROC: 30233N1 Transfusion of Nonautologous Red Blood Cells into Peripheral Vein, Percutaneous Approach (ICD-10-PCS; principal; 2021-08-26)
PROC: 4B02XTZ Measurement of Cardiac Defibrillator, External Approach (ICD-10-PCS; 2021-08-29)
DX: I48.91 Unspecified atrial fibrillation (principal); D62 Acute posthemorrhagic anemia; I47.1 Supraventricular tachycardia; E11.65 Type 2 diabetes mellitus with hyperglycemia; E66.01 Morbid (severe) obesity due to excess calories; R31.9 Hematuria, unspecified; E78.5 Hyperlipidemia, unspecified; N92.0 Excessive and frequent menstruation with regular cycle; Z20.822 Contact with and (suspected) exposure to COVID-19; I10 Essential (primary) hypertension; Z82.49 Family history of ischemic heart disease and other diseases of the circulatory system; Z95.810 Presence of automatic (implantable) cardiac defibrillator; Z68.32 Body mass index [BMI] 32.0-32.9, adult; Z85.72 Personal history of non-Hodgkin lymphomas
CPT/HCPCS: 36415; 71045; 80053; 81001; 82962; 83036; 83540; 83550; 83880; 84443; 84484; 84702; 85025; 86850; 86900; 86901; 86920; 93005; 93306; 96365; G0378; J0696; J1815

== ENCOUNTER 2021-11-07 06:52 | Inpatient (IN) | payer BC ==
[~2021-11-07] VITALS: Ht 152.4 cm; Wt 70.0 kg
[~2021-11-07 06:52] MED LIST changes: +GLYB5TAB8 PO; +MET50T PO; +METF-370 PO
[2021-11-07 09:15] LABS: Basophils # (auto) 0.1 10 ^3/uL (0-0.2); Eosinophils # (auto) 0.1 10 ^3/uL (0-0.8); Lymphocytes # (auto) 0.8 10 ^3/uL (0.4-5.4); Monocytes # (auto) 0.7 10 ^3/uL (0-1.3)
[2021-11-07 09:17] LABS: Basophils % (auto) 0.9 % (0.0-2.0); Eosinophils % (auto) 0.8 % (0.0-7.0); Hematocrit 22.9 % (36.0-46.0); Hemoglobin 7.4 g/dL (12.2-16.2); Lymphocytes % (auto) 8.5 % (10.0-50.0); Mean Corpuscular Hemoglobin 23.6 pg (28.0-32.0); Mean Corpuscular Hgb Conc. 32.4 g/dL (32.0-36.0); Mean Corpuscular Volume 72.9 fL (80.0-100.0); Monocytes % (auto) 6.9 % (0.0-12.0); Neutrophils # (auto) 8.1 10 ^3/uL (1.6-8.6); Neutrophils % (auto) 82.9 % (37.0-80.0); Red Blood Cells 3.15 10^6/uL (4.0-5.20); Red Cell Distribution Width 16.5 % (11.8-14.3); White Blood Cell 9.8 10^3/uL (4.4-10.8)
[2021-11-07 09:28] LABS: INR 1.04 (0.9-1.15); Partial Thromboplastin Time 26.9 sec (24.6-33.4)
[2021-11-07 09:31] LABS: Albumin 2.9 g/dL (3.4-5.0); Calcium 8.3 mg/dL (8.5-10.1); Potassium 3.3 mmol/L (3.5-5.1)
[2021-11-07 09:35] LABS: BUN/Creatinine Ratio 20.8; Bilirubin, Total 0.3 mg/dL (0.2-1.0); Total Protein 7.5 g/dL (6.4-8.2)
[2021-11-07 13:10] LABS: Urine Bacteria NONE SEEN /hpf (None Seen); Urine Blood 3+ /uL (Negative); Urine Mucus FEW (None Seen); Urine Specific Gravity 1.014 (1.001-1.035); Urine WBC 15 /hpf (0 - 5)
[2021-11-07] MEDS ORDERED: POTASSIUM CHL 20 Meq TABLET PO ONE (13:30)
[2021-11-07] MEDS ORDERED: NITROGLYCERIN 0.4 MG SL TAB SL PRN (13:30)
[2021-11-07] MEDS ORDERED: MORPHINE SULFATE INJ 2 MG/ml SYRG IV PRN (13:30)
[2021-11-07] MEDS ORDERED: DEXTROSE (50%) 50ML SYRG IV PRN (15:15)
[2021-11-07] MEDS: ACCU-CHEK COMFORT CURVE STRIP VI SCH (18:00)
[2021-11-07] MEDS: InsuLIN REG 1unit/0.01ml Soln (100units/ml) SC SCH (18:00)
[2021-11-07 21:23] VITALS: BP 128/68
[2021-11-07] MEDS: METOPROLOL TARTRATE 50 MG TAB PO SCH (21:25)
[2021-11-07] MEDS ORDERED: MEDR10TA9 PO (21:27)
[2021-11-07] MEDS ORDERED: METOPROLOL TARTRATE 50 MG TAB PO SCH (22:00)
[2021-11-07 23:56] VITALS: BP 105/64
[2021-11-08] VITALS (9 sets, daily range): BP systolic 102–122; BP diastolic 61–71
[2021-11-08] MEDS: ACCU-CHEK COMFORT CURVE STRIP VI SCH ×5 (00:05→23:44)
[2021-11-08] MEDS: InsuLIN REG 1unit/0.01ml Soln (100units/ml) SC SCH ×5 (00:24→23:47)
[2021-11-08] MEDS: METOPROLOL TARTRATE 50 MG TAB PO SCH ×3 (06:11→22:06)
[2021-11-08 07:06] LABS: Basophils # (auto) 0.1 10 ^3/uL (0-0.2); Eosinophils # (auto) 0.2 10 ^3/uL (0-0.8); Hemoglobin 8.7 g/dL (12.2-16.2); Lymphocytes # (auto) 1.4 10 ^3/uL (0.4-5.4); Mean Corpuscular Hemoglobin 23.1 pg (28.0-32.0); Mean Corpuscular Hgb Conc. 31.3 g/dL (32.0-36.0); Mean Corpuscular Volume 73.6 fL (80.0-100.0); Monocytes # (auto) 0.8 10 ^3/uL (0-1.3)
[2021-11-08 07:07] LABS: INR 1.05 (0.9-1.15); Partial Thromboplastin Time 29.6 sec (24.6-33.4)
[2021-11-08 07:09] LABS: Basophils % (auto) 1.1 % (0.0-2.0); Eosinophils % (auto) 2.7 % (0.0-7.0); Hematocrit 27.8 % (36.0-46.0); Lymphocytes % (auto) 16.2 % (10.0-50.0); Neutrophils # (auto) 6.3 10 ^3/uL (1.6-8.6); Nucleated Red Blood Cells % 0.1 %; Red Blood Cells 3.78 10^6/uL (4.0-5.20); Red Cell Distribution Width 16.9 % (11.8-14.3); White Blood Cell 8.8 10^3/uL (4.4-10.8)
[2021-11-08 07:10] LABS: BUN/Creatinine Ratio 27.5; Calcium 8.3 mg/dL (8.5-10.1); Magnesium 2.1 mg/dL (1.6-2.6); Potassium 4.2 mmol/L (3.5-5.1)
[2021-11-08] MEDS: ASPirin-EC 81 mg tab PO SCH (09:56)
[2021-11-08] MEDS: ATORVASTATIN 20 MG TAB PO SCH (09:56)
[2021-11-08] MEDS ORDERED: medroxyPROGESTERone ACETATE 5 MG TAB PO ONE (11:45)
[2021-11-08] MEDS ORDERED: cefTRIAXone 1GM/50ML D5W 50 ML IV ONE (11:45)
[2021-11-09 05:00] VITALS: BP 105/64
[2021-11-09] MEDS: ACCU-CHEK COMFORT CURVE STRIP VI SCH ×2 (06:14→11:59)
[2021-11-09] MEDS: InsuLIN REG 1unit/0.01ml Soln (100units/ml) SC SCH ×2 (06:15→11:59)
[2021-11-09 06:32] LABS: Basophils # (auto) 0.1 10 ^3/uL (0-0.2); Eosinophils # (auto) 0.2 10 ^3/uL (0-0.8); Lymphocytes # (auto) 1.2 10 ^3/uL (0.4-5.4); Neutrophils # (auto) 6.3 10 ^3/uL (1.6-8.6); Nucleated Red Blood Cells % 0.1 %
[2021-11-09 06:35] LABS: Basophils % (auto) 0.6 % (0.0-2.0); Eosinophils % (auto) 2.6 % (0.0-7.0); Hematocrit 27.8 % (36.0-46.0); Hemoglobin 9.4 g/dL (12.2-16.2); Lymphocytes % (auto) 13.7 % (10.0-50.0); Mean Corpuscular Hemoglobin 24.4 pg (28.0-32.0); Mean Corpuscular Hgb Conc. 33.7 g/dL (32.0-36.0); Mean Corpuscular Volume 72.5 fL (80.0-100.0); Monocytes # (auto) 0.8 10 ^3/uL (0-1.3); Monocytes % (auto) 9.5 % (0.0-12.0); Neutrophils % (auto) 73.6 % (37.0-80.0); Red Blood Cells 3.84 10^6/uL (4.0-5.20); Red Cell Distribution Width 16.8 % (11.8-14.3); White Blood Cell 8.6 10^3/uL (4.4-10.8)
[2021-11-09 09:00] VITALS: BP 104/69
[2021-11-09] MEDS ORDERED: cefTRIAXone 1GM/50ML D5W 50 ML IV SCH (09:00)
[2021-11-09] MEDS: ASPirin-EC 81 mg tab PO SCH (09:26)
[2021-11-09] MEDS: ATORVASTATIN 20 MG TAB PO SCH (09:26)
[2021-11-09] MEDS ORDERED: medroxyPROGESTERone ACETATE 5 MG TAB PO SCH (10:00)
[2021-11-09] MEDS ORDERED: METO25TA5 PO (10:02)
[2021-11-09] MEDS ORDERED: FERR-7 PO (10:02)
[2021-11-09 11:09] VITALS: BP 107/60
[2021-11-09 13:00] VITALS: BP 119/73
== END 2021-11-09 13:02 | disposition home or self-care (01) | DRG 281 ==
LOC: EDBD 06:52 → ER 06:52 → TELE 13:50 → TELE-WESTW 18:03
PROVIDERS: ADMIT Nurse Practitioner Family; ATTEND Family Medicine
PROC: 4B02XTZ Measurement of Cardiac Defibrillator, External Approach (ICD-10-PCS; principal; 2021-11-08)
DX: T82.118A Breakdown (mechanical) of other cardiac electronic device, initial encounter (principal); I21.A1 Myocardial infarction type 2; I47.1 Supraventricular tachycardia; I48.20 Chronic atrial fibrillation, unspecified; D64.9 Anemia, unspecified; E87.6 Hypokalemia; Z20.822 Contact with and (suspected) exposure to COVID-19; Y83.8 Other surgical procedures as the cause of abnormal reaction of the patient, or of later complication, without mention of misadventure at the time of the procedure; I50.9 Heart failure, unspecified; I11.0 Hypertensive heart disease with heart failure; E11.9 Type 2 diabetes mellitus without complications; E66.01 Morbid (severe) obesity due to excess calories; E78.5 Hyperlipidemia, unspecified; Z79.82 Long term (current) use of aspirin; Z95.810 Presence of automatic (implantable) cardiac defibrillator; Z68.30 Body mass index [BMI] 30.0-30.9, adult; Z79.84 Long term (current) use of oral hypoglycemic drugs; Z79.899 Other long term (current) drug therapy; Z82.49 Family history of ischemic heart disease and other diseases of the circulatory system; Z83.3 Family history of diabetes mellitus; Z85.72 Personal history of non-Hodgkin lymphomas; Z91.19 Patient's noncompliance with other medical treatment and regimen; Z95.2 Presence of prosthetic heart valve; Y92.89 Other specified places as the place of occurrence of the external cause
CPT/HCPCS: 36415; 71045; 80048; 80053; 81001; 82962; 83735; 83880; 84132; 84439; 84443; 84484; 85025; 85610; 85730; 86850; 86900; 86901; 86920; 87086; 93005; 93306; G0378; J0696; J1815

== ENCOUNTER 2023-08-20 10:33 | Inpatient (IN) | payer BC, OTHER ==
[~2023-08-20] VITALS: Ht 152.4 cm; Wt 51.2 kg
[~2023-08-20 10:33] MED LIST changes: -ATO40T PO; +BENA-36 PO; -BENA10TA15 PO; +BRIM0.2S17 EACHEYE; +DOCU-94 PO; -GLYB5TAB8 PO; +HYDR-4902 PO; +HYDR25TA5 PO; +LEVO25TA6 PO; +MAGN400T40 PO; -MET50T PO; -METF-370 PO; +METO-6 PO; +POTA-215 PO; +PROC10TA6 PO
[2023-08-20 11:19] LABS: Basophils # (auto) 0.1 10 ^3/uL (0-0.2); Eosinophils # (auto) 0.2 10 ^3/uL (0-0.8); Hemoglobin 8.4 g/dL (12.2-16.2); Lymphocytes # (auto) 0.9 10 ^3/uL (0.4-5.4); White Blood Cell 6.5 10^3/uL (4.4-10.8)
[2023-08-20 11:21] LABS: Eosinophils % (auto) 3.2 % (0.0-7.0); Hematocrit 25.1 % (36.0-46.0); Lymphocytes % (auto) 13.6 % (10.0-50.0); Mean Corpuscular Hemoglobin 27.1 pg (28.0-32.0); Mean Corpuscular Hgb Conc. 33.5 g/dL (32.0-36.0); Mean Corpuscular Volume 80.7 fL (80.0-100.0); Neutrophils # (auto) 4.3 10 ^3/uL (1.6-8.6); Neutrophils % (auto) 66.2 % (37.0-80.0); Nucleated Red Blood Cells % 0.1 %; Red Blood Cells 3.11 10^6/uL (4.0-5.20); Red Cell Distribution Width 18.9 % (11.8-14.3)
[2023-08-20 11:27] LABS: Chloride 100 mmol/L (98-107); Potassium 3.6 mmol/L (3.5-5.1); Sodium 134 mmol/L (136-145)
[2023-08-20 11:28] LABS: Anion Gap 4 (5-15); Calcium 8.6 mg/dL (8.5-10.1); Carbon Dioxide 30 mmol/L (20-30)
[2023-08-20 11:33] LABS: BUN/Creatinine Ratio 14.8 (10.0-20.0); Blood Urea Nitrogen 13 mg/dL (9-23); Glucose 106 mg/dL (74-106)
[2023-08-20 11:42] LABS: Urine Bacteria None Seen /hpf (None Seen)
[2023-08-20 12:26] LABS: Urine Blood Negative /uL (Negative); Urine Clarity Clear (Clear); Urine Color Light-Yellow (Yellow); Urine Protein, UAD Negative (Negative); Urine Specific Gravity 1.009 (1.001-1.035); Urine Urobilinogen Normal (Negative); Urine WBC 1 /hpf (0 - 5); Urine pH 7.5 (5.0-9.0)
[2023-08-20 12:54] VITALS: PULSE 70; O2SAT 100
[2023-08-20] MEDS ORDERED: NITROGLYCERIN 0.4 MG SL TAB SL PRN (13:15)
[2023-08-20] MEDS ORDERED: MORPHINE SULFATE INJ 2 MG/ml SYRG IV PRN (13:15)
[2023-08-20] MEDS ORDERED: ACETAMINOPHEN 325 MG TAB PO PRN (13:15)
[2023-08-20] MEDS ORDERED: BRIMONIDINE 0.2% OPTH Soln 5ml EACHEYE SCH (13:30)
[2023-08-20] MEDS ORDERED: PROCHLORPERAZINE MALEATE 10 MG TAB PO PRN (13:30)
[2023-08-20] MEDS: MAGNESIUM SULFATE 1GM/100ML 100 ML IV SCH (14:00)
[2023-08-20 16:25] LABS: % Iron Saturation 23.1 % (15-50)
[2023-08-20] MEDS: SODIUM CHLORIDE 0.9% 500 ML IV ONE (18:11)
[2023-08-20 19:30] VITALS: PULSE 70; RESP 13; O2SAT 100
[2023-08-20 22:13] VITALS: BP 105/65; PULSE 70; RESP 14; TEMP 98.2; O2SAT 100
[2023-08-20] MEDS ORDERED: AMIO200T13 PO (22:28)
[2023-08-20] MEDS ORDERED: METF-370 PO (22:28)
[2023-08-21] VITALS (8 sets, daily range): BP systolic 89–113; BP diastolic 47–71; PULSE 69–83; RESP 14–20; TEMP 97.4–98.4; O2SAT 97–100
[2023-08-21] MEDS: LEVOTHYROXINE SODIUM 25 MCG TAB PO SCH (06:19)
[2023-08-21 06:45] LABS: Albumin 3.6 g/dL (3.2-4.8); Alkaline Phosphatase 88 U/L (46-116); Anion Gap 7 (5-15); Aspartate Aminotransferase 34 U/L (13-40); BUN/Creatinine Ratio 13.2 (10.0-20.0); Blood Urea Nitrogen 12 mg/dL (9-23); Calcium 8.7 mg/dL (8.5-10.1); Carbon Dioxide 25 mmol/L (20-30); Chloride 103 mmol/L (98-107); Glucose 86 mg/dL (74-106); Potassium 3.9 mmol/L (3.5-5.1); Sodium 135 mmol/L (136-145)
[2023-08-21 06:46] LABS: Alanine Aminotransferase 9 U/L (7-40); Bilirubin, Total 0.8 mg/dL (0.2-1.0); Total Protein 6.4 g/dL (5.7-8.2)
[2023-08-21 07:16] LABS: Eosinophils # (auto) 0.2 10 ^3/uL (0-0.8); Lymphocytes # (auto) 0.9 10 ^3/uL (0.4-5.4); Mean Corpuscular Hemoglobin 27.1 pg (28.0-32.0)
[2023-08-21 07:18] LABS: Basophils # (auto) 0.1 10 ^3/uL (0-0.2); Basophils % (auto) 2.3 % (0.0-2.0); Eosinophils % (auto) 3.5 % (0.0-7.0); Hematocrit 24.6 % (36.0-46.0); Hemoglobin 8.1 g/dL (12.2-16.2); Lymphocytes % (auto) 14.6 % (10.0-50.0); Mean Corpuscular Hgb Conc. 32.9 g/dL (32.0-36.0); Mean Corpuscular Volume 82.2 fL (80.0-100.0); Monocytes % (auto) 16.5 % (0.0-12.0); Neutrophils # (auto) 3.7 10 ^3/uL (1.6-8.6); Neutrophils % (auto) 63.1 % (37.0-80.0); Nucleated Red Blood Cells % 0.1 %; Red Cell Distribution Width 18.7 % (11.8-14.3); White Blood Cell 5.8 10^3/uL (4.4-10.8)
[2023-08-21] MEDS: MAGNESIUM OXIDE 400 MG TAB PO SCH (09:33)
[2023-08-21] MEDS: METOPROLOL SUCCINATE XL 50 MG TAB PO SCH (09:35)
[2023-08-21] MEDS: hydroCHLOROthiazide 25 MG TAB PO SCH (09:36)
[2023-08-21] MEDS: POTASSIUM CHL 10 Meq TABLET PO SCH (09:36)
[2023-08-21] MEDS: HYDROcodone-ACET 5/325MG TAB PO SCH (09:36)
[2023-08-21] MEDS: ENOXAPARIN SOD 40 MG/0.4 ML SYRINGE SC SCH (10:00)
[2023-08-21] MEDS: BENAZEPRIL HCL 10 MG TAB PO SCH (10:00)
[2023-08-21] MEDS: ASPirin-EC 81 mg tab PO SCH (10:00)
[2023-08-21] MEDS: AMIODARONE HCL 200 MG TAB PO ONE (11:02)
[2023-08-21] MEDS: AMIODARONE HCL 200 MG TAB PO SCH (21:55)
[2023-08-22] VITALS (8 sets, daily range): BP systolic 97–147; BP diastolic 59–87; PULSE 70–82; RESP 15–21; TEMP 97.6–98.4; O2SAT 94–100
[2023-08-22 07:03] LABS: Basophils # (auto) 0.1 10 ^3/uL (0-0.2); Basophils % (auto) 1.2 % (0.0-2.0); Eosinophils # (auto) 0.2 10 ^3/uL (0-0.8); Eosinophils % (auto) 2.7 % (0.0-7.0); Hematocrit 23.5 % (36.0-46.0); Hemoglobin 7.7 g/dL (12.2-16.2); Lymphocytes # (auto) 0.8 10 ^3/uL (0.4-5.4); Lymphocytes % (auto) 12.6 % (10.0-50.0); Mean Corpuscular Hemoglobin 27.1 pg (28.0-32.0); Mean Corpuscular Volume 82.2 fL (80.0-100.0); Monocytes # (auto) 0.8 10 ^3/uL (0-1.3); Monocytes % (auto) 12.9 % (0.0-12.0); Neutrophils # (auto) 4.3 10 ^3/uL (1.6-8.6); Neutrophils % (auto) 70.6 % (37.0-80.0); Red Blood Cells 2.85 10^6/uL (4.0-5.20); Red Cell Distribution Width 18.4 % (11.8-14.3); White Blood Cell 6.1 10^3/uL (4.4-10.8)
[2023-08-22 07:18] LABS: Albumin 3.7 g/dL (3.2-4.8); Alkaline Phosphatase 91 U/L (46-116); Anion Gap 4 (5-15); Aspartate Aminotransferase 21 U/L (13-40); Bilirubin, Total 0.7 mg/dL (0.2-1.0); Blood Urea Nitrogen 13 mg/dL (9-23); Calcium 9.2 mg/dL (8.5-10.1); Carbon Dioxide 28 mmol/L (20-30); Chloride 102 mmol/L (98-107); Glucose 92 mg/dL (74-106); Magnesium 1.8 mg/dL (1.6-2.6); Potassium 3.7 mmol/L (3.5-5.1); Sodium 134 mmol/L (136-145); Total Protein 6.6 g/dL (5.7-8.2)
[2023-08-22 07:24] LABS: Alanine Aminotransferase < 9 U/L (7-40)
[2023-08-22] MEDS: DOCUSATE SOD 100 MG CAP PO PRN (11:38)
[2023-08-23] VITALS (8 sets, daily range): BP systolic 92–119; BP diastolic 51–68; PULSE 70–71; RESP 16–20; TEMP 97.7–98.2; O2SAT 97–100
[2023-08-24] VITALS (8 sets, daily range): BP systolic 94–111; BP diastolic 53–64; PULSE 68–71; RESP 14–20; TEMP 97.7–98.2; O2SAT 100
[2023-08-24 07:00] LABS: Basophils # (auto) 0.1 10 ^3/uL (0-0.2); Eosinophils # (auto) 0.2 10 ^3/uL (0-0.8); Hemoglobin 7.3 g/dL (12.2-16.2); Lymphocytes # (auto) 0.7 10 ^3/uL (0.4-5.4); Lymphocytes % (auto) 11.5 % (10.0-50.0); Mean Corpuscular Hgb Conc. 33.5 g/dL (32.0-36.0); Monocytes # (auto) 0.6 10 ^3/uL (0-1.3)
[2023-08-24 07:03] LABS: Basophils % (auto) 1.4 % (0.0-2.0); Eosinophils % (auto) 3.8 % (0.0-7.0); Hematocrit 21.7 % (36.0-46.0); Mean Corpuscular Hemoglobin 27.4 pg (28.0-32.0); Mean Corpuscular Volume 81.7 fL (80.0-100.0); Monocytes % (auto) 10.3 % (0.0-12.0); Neutrophils # (auto) 4.6 10 ^3/uL (1.6-8.6); Red Blood Cells 2.66 10^6/uL (4.0-5.20); Red Cell Distribution Width 18.7 % (11.8-14.3); White Blood Cell 6.3 10^3/uL (4.4-10.8)
[2023-08-24] MEDS: LEVOTHYROXINE SODIUM 50 MCG TAB PO ONE (11:02)
[2023-08-24 13:05] LABS: Hematocrit 25.4 % (36.0-46.0); Hemoglobin 8.4 g/dL (12.2-16.2)
[2023-08-24 18:40] LABS: Hematocrit 22.8 % (36.0-46.0); Hemoglobin 7.7 g/dL (12.2-16.2)
[2023-08-24] MEDS: PANTOPRAZOLE 40 MG TAB PO ONE (19:02)
[2023-08-25 00:49] LABS: Hemoglobin 7.5 g/dL (12.2-16.2)
[2023-08-25 00:51] LABS: Hematocrit 22.2 % (36.0-46.0)
[2023-08-25 01:00] VITALS: BP 94/52; PULSE 70; RESP 18; TEMP 98.1; O2SAT 100
[2023-08-25 05:00] VITALS: BP 102/61; PULSE 70; RESP 18; TEMP 98.1; O2SAT 100
[2023-08-25] MEDS: LEVOTHYROXINE SODIUM 50 MCG TAB PO SCH (06:00)
[2023-08-25] MEDS: PANTOPRAZOLE 40 MG TAB PO SCH (06:00)
[2023-08-25 06:51] LABS: Basophils # (auto) 0.1 10 ^3/uL (0-0.2); Basophils % (auto) 1.5 % (0.0-2.0); Eosinophils # (auto) 0.3 10 ^3/uL (0-0.8); Eosinophils % (auto) 4.7 % (0.0-7.0); Hematocrit 22.2 % (36.0-46.0); Hemoglobin 7.4 g/dL (12.2-16.2); Lymphocytes # (auto) 0.7 10 ^3/uL (0.4-5.4); Lymphocytes % (auto) 12.4 % (10.0-50.0); Mean Corpuscular Hemoglobin 27.3 pg (28.0-32.0); Mean Corpuscular Hgb Conc. 33.4 g/dL (32.0-36.0); Mean Corpuscular Volume 81.7 fL (80.0-100.0); Monocytes # (auto) 0.6 10 ^3/uL (0-1.3); Monocytes % (auto) 10.4 % (0.0-12.0); Neutrophils # (auto) 4.1 10 ^3/uL (1.6-8.6); Red Blood Cells 2.72 10^6/uL (4.0-5.20); Red Cell Distribution Width 18.6 % (11.8-14.3); White Blood Cell 5.8 10^3/uL (4.4-10.8)
[2023-08-25 07:12] LABS: Albumin 3.6 g/dL (3.2-4.8); Alkaline Phosphatase 77 U/L (46-116); Anion Gap 5 (5-15); Aspartate Aminotransferase 19 U/L (13-40); BUN/Creatinine Ratio 13.4 (10.0-20.0); Bilirubin, Total 0.5 mg/dL (0.2-1.0); Blood Urea Nitrogen 13 mg/dL (9-23); Calcium 9.3 mg/dL (8.7-10.4); Carbon Dioxide 28 mmol/L (20-30); Chloride 101 mmol/L (98-107); Glucose 85 mg/dL (74-106); Potassium 3.9 mmol/L (3.5-5.1); Sodium 134 mmol/L (136-145); Total Protein 6.5 g/dL (5.7-8.2)
[2023-08-25 07:13] LABS: Alanine Aminotransferase < 9 U/L (7-40)
[2023-08-25 08:00] VITALS: BP 106/62; PULSE 70; RESP 20; TEMP 98.2; O2SAT 100
[2023-08-25 08:37] VITALS: BP 99/54; PULSE 70; RESP 20; TEMP 98.2; O2SAT 100
[2023-08-25] MEDS ORDERED: MECL12.586 PO (12:58)
[2023-08-25] MEDS ORDERED: LEV50T PO (12:58)
[2023-08-25 13:00] VITALS: BP 108/61; PULSE 75; RESP 18; TEMP 97.9; O2SAT 94
[2023-08-25 14:33] VITALS: BP 106/62; PULSE 70; RESP 18; TEMP 36.6; O2SAT 99
== END 2023-08-25 17:16 | disposition home or self-care (01) | DRG 74 ==
LOC: ER 10:33 → OVERFLOW 13:22 → TELE-EAST 22:00
PROVIDERS: ADMIT Nurse Practitioner Family; ATTEND Internal Medicine
DX: G90.8 Other disorders of autonomic nervous system (principal); I50.42 Chronic combined systolic (congestive) and diastolic (congestive) heart failure; H81.13 Benign paroxysmal vertigo, bilateral; I11.0 Hypertensive heart disease with heart failure; E83.42 Hypomagnesemia; I48.91 Unspecified atrial fibrillation; I25.10 Atherosclerotic heart disease of native coronary artery without angina pectoris; T45.1X5A Adverse effect of antineoplastic and immunosuppressive drugs, initial encounter; D63.8 Anemia in other chronic diseases classified elsewhere; E11.42 Type 2 diabetes mellitus with diabetic polyneuropathy; G62.2 Polyneuropathy due to other toxic agents; E03.9 Hypothyroidism, unspecified; E78.5 Hyperlipidemia, unspecified; F17.200 Nicotine dependence, unspecified, uncomplicated; Z83.3 Family history of diabetes mellitus; Z85.41 Personal history of malignant neoplasm of cervix uteri; Z98.61 Coronary angioplasty status; Z79.4 Long term (current) use of insulin; Z82.49 Family history of ischemic heart disease and other diseases of the circulatory system; Z90.710 Acquired absence of both cervix and uterus; Z95.1 Presence of aortocoronary bypass graft; Z95.810 Presence of automatic (implantable) cardiac defibrillator; Z85.828 Personal history of other malignant neoplasm of skin; Z85.72 Personal history of non-Hodgkin lymphomas; Y92.89 Other specified places as the place of occurrence of the external cause
CPT/HCPCS: 36415; 70450; 71045; 80048; 80053; 81001; 82728; 83036; 83540; 83550; 83735; 83880; 84443; 84484; 85014; 85018; 85025; 87081; 93005; 96361; 96365; 96366; 97163; G0378

== ENCOUNTER 2023-08-28 15:21 | Emergency (ER) | payer BC, OTHER ==
[~2023-08-28] VITALS: Ht 152.4 cm; Wt 48.9 kg
[~2023-08-28 15:21] MED LIST changes: +AMIO200T13 PO; -ASPI-378 PO; -BENA-36 PO; +LEV50T PO; -LEVO25TA6 PO; +MECL12.586 PO; +METF-370 PO
[2023-08-28 16:00] VITALS: BP 91/56; PULSE 70; RESP 16; O2SAT 95
[2023-08-28 16:50] LABS: Basophils # (auto) 0 10 ^3/uL (0-0.2); Eosinophils # (auto) 0.4 10 ^3/uL (0-0.8); Hematocrit 23.1 % (36.0-46.0); Hemoglobin 7.7 g/dL (12.2-16.2); Lymphocytes # (auto) 0.9 10 ^3/uL (0.4-5.4); Mean Corpuscular Hgb Conc. 33.3 g/dL (32.0-36.0); Monocytes # (auto) 0.5 10 ^3/uL (0-1.3); Neutrophils # (auto) 4.3 10 ^3/uL (1.6-8.6); Red Blood Cells 2.86 10^6/uL (4.0-5.20); White Blood Cell 6.1 10^3/uL (4.4-10.8)
[2023-08-28 16:52] LABS: Basophils % (auto) 0.6 % (0.0-2.0); Eosinophils % (auto) 7.1 % (0.0-7.0); Lymphocytes % (auto) 14.2 % (10.0-50.0); Monocytes % (auto) 8.4 % (0.0-12.0); Neutrophils % (auto) 69.7 % (37.0-80.0); Red Cell Distribution Width 18.8 % (11.8-14.3)
[2023-08-28 17:19] LABS: Alkaline Phosphatase 94 U/L (46-116); Anion Gap 7 (5-15); Aspartate Aminotransferase 26 U/L (13-40); BUN/Creatinine Ratio 18.2 (10.0-20.0); Blood Urea Nitrogen 20 mg/dL (9-23); Calcium 8.9 mg/dL (8.7-10.4); Carbon Dioxide 26 mmol/L (20-30); Chloride 100 mmol/L (98-107); Glucose 119 mg/dL (74-106); Lipase 39 U/L (12-53); Potassium 3.8 mmol/L (3.5-5.1); Sodium 133 mmol/L (136-145)
[2023-08-28 17:20] LABS: Albumin 3.7 g/dL (3.2-4.8); Bilirubin, Total 0.4 mg/dL (0.2-1.0); Total Protein 6.5 g/dL (5.7-8.2)
[2023-08-28 17:23] LABS: INR 1.1 (0.9-1.15); Partial Thromboplastin Time 34.9 SEC (24.5-34.5); Prothrombin Time 11.6 sec (9.3-11.8)
[2023-08-28 17:44] LABS: Alanine Aminotransferase 9 U/L (7-40)
[2023-08-28 17:46] LABS: Urine Bacteria FEW /hpf (None Seen); Urine Blood Negative /uL (Negative); Urine Clarity Clear (Clear); Urine Color Yellow (Yellow); Urine Protein, UAD TRACE (Negative); Urine Specific Gravity 1.016 (1.001-1.035); Urine Urobilinogen Normal (Negative); Urine WBC 3 /hpf (0 - 5); Urine pH 5.5 (5.0-9.0)
[2023-08-28] MEDS ORDERED: DOCUSATE SOD 100 MG CAP PO PRN (21:30)
[2023-08-28] MEDS ORDERED: HYDROcodone-ACET 5/325MG TAB PO PRN (21:30)
[2023-08-28] MEDS ORDERED: DEXTROSE (50%) 50ML SYRG IV PRN (21:30)
[2023-08-28] MEDS ORDERED: ONDANSETRON HCL 4 MG/2 ML VIAL IV PRN (21:30)
[2023-08-28] MEDS ORDERED: ACETAMINOPHEN 325 MG TAB PO PRN (21:30)
[2023-08-28] MEDS ORDERED: AZITHROMYCIN 500MG/ 250ML 250 ML IV ONE (21:30)
[2023-08-28] MEDS ORDERED: SODIUM CHLOR 0.9% PF (SALINE LOCK) 10ML VIAL/SYR IV SCH (22:00)
[2023-08-29] MEDS ORDERED: ACCU-CHEK COMFORT CURVE STRIP VI SCH
[2023-08-29] MEDS ORDERED: InsuLIN REG 1unit/0.01ml Soln (100units/ml) SC SCH
[2023-08-29] MEDS ORDERED: LEVOTHYROXINE SODIUM 50 MCG TAB PO SCH (06:00)
[2023-08-29] MEDS ORDERED: PANTOPRAZOLE 40 MG/10 ML VIAL INJ IV SCH (10:00)
[2023-08-29] MEDS ORDERED: AZITHROMYCIN 500MG/ 250ML 250 ML IV SCH (10:00)
== END 2023-08-29 01:51 | disposition left against medical advice (07) ==
LOC: ER 15:21
DX: K62.5 Hemorrhage of anus and rectum (principal); R10.2 Pelvic and perineal pain; D64.89 Other specified anemias; I11.0 Hypertensive heart disease with heart failure; I50.9 Heart failure, unspecified; I25.2 Old myocardial infarction; E11.9 Type 2 diabetes mellitus without complications; I48.91 Unspecified atrial fibrillation; Z95.0 Presence of cardiac pacemaker; Z95.1 Presence of aortocoronary bypass graft; Z90.710 Acquired absence of both cervix and uterus; Z79.899 Other long term (current) drug therapy
CPT/HCPCS: 36415; 74176; 80053; 81001; 83605; 83690; 83880; 84443; 84484; 84702; 85025; 85610; 85730; 86850; 86900; 86901; 87040